=== PATIENT | female | born 1955 | race African-American/Black ===

== ENCOUNTER 2016-02-25 08:36 | Emergency (ER) | payer MEDICARE, OTHER ==
[~2016-02-25] VITALS: Ht 172.7 cm; Wt 100.0 kg
[2016-02-25 08:42] VITALS: TEMP 36.7; Ht 172.7 cm; Wt 100.0 kg
--- NOTE | 2016-02-25 09:26 | EMERGENCY ROOM VISIT NOTE ---
ED Visit Note First contact with patient: 08:44 I have seen and examined this patient with Gina Overton and generally agree with the treatment plan as discussed. Vital Signs Date Time Temp Pulse Resp B/P Pulse Ox O2 Delivery O2 Flow Rate FiO2 02/25/16 08:42 36.7 69 18 142/88 95 Room Air Departure Information Referrals No Doctor, Assigned (PCP) Patient Instructions [facility]
[2016-02-25] MEDS ORDERED: LISI-725 PO (09:30)
[2016-02-25] MEDS ORDERED: ESCI10TA17 PO (09:31)
[2016-02-25] MEDS ORDERED: ASPI81TA28 PO (09:31)
--- NOTE | 2016-02-25 10:10 | DIAGNOSTIC IMAGING REPORT ---
LEFT ANKLE MIN 3 VIEWS ROUTINE CLINICAL HISTORY: Left ankle pain status post trauma COMPARISON: None. DISCUSSION: No acute fractures are visualized. There is a flatfoot deformity. There are advanced degenerative changes within the midfoot. The findings could be on a neuropathic basis. There is mild soft tissue swelling. IMPRESSION: 1. No acute fractures 2. Flat foot deformity 3. Advanced degenerative changes within the hindfoot and midfoot. While nonspecific, the findings could be on a neuropathic basis. Electronically signed by: Abraham Alvarado M.D. 02/25/2016 10:08 AM Dictated Date/Time: 02/25/2016 10:05 AM
--- NOTE | 2016-02-25 10:11 | DIAGNOSTIC IMAGING REPORT ---
LEFT FOOT MIN 3 VIEWS ROUTINE CLINICAL HISTORY: Left foot pain following twisting injury 3 days ago. COMPARISON: None FINDINGS: The tarsometatarsal joints are intact. There is pes planus deformity. Severe joint space narrowing with osteophytosis is noted within the left midfoot. No acute fracture is identified. There is moderate arthritis within multiple articulations of the left forefoot. IMPRESSION: 1. No acute fracture or dislocation of the left foot. 2. Severe left midfoot arthritis with pes planus deformity. Electronically signed by: Dev Muro M.D. 02/25/2016 10:09 AM Dictated Date/Time: 02/25/2016 10:06 AM
--- NOTE | 2016-02-25 11:10 | EMERGENCY ROOM VISIT NOTE ---
ED Visit Note First contact with patient: 08:44 CHIEF COMPLAINT: Left foot and ankle injury 3 days ago HISTORY OF PRESENT ILLNESS: Patient is a 60-year-old -Citizen Of [place] female who presents emergency department for evaluation of left foot and ankle pain after she slipped on ice and fell a couple of days ago. She notes pain in the lateral aspect of the left ankle radiating into the foot. She tried elevating, taking Tylenol, wrapping it and soaking in Epsom salts. She states the pain has not gotten any better. She notes that she scraped her knee slightly but denies any pain there. No other injuries are noted. REVIEW OF SYSTEMS: Review of systems as per HPI. All other systems reviewed were negative. At least 6 systems reviewed. PMH: Electronic medical records are reviewed and summarized as above/below. See Problem List. SOCIAL HISTORY: Patient lives at home with her family. Employed. Nonsmoker. PHYSICAL EXAM: Vital Signs: Reviewed Nurse's notes. MENTAL STATUS: Alert, oriented, and cooperative. Patient has planovalgus alignment. The left ankle is slightly swollen and tender over the lateral aspect but the skin is intact and there is no ligamentous instability. There is also swelling noted into the dorsum of the foot with pain over the 5th metatarsal. No pain over the proximal fibular head. Lisfranc joint is negative. There is no deformity. The foot and toes are warm and well-perfused. Sensation to pain and light touch is intact. EMERGENCY DEPARTMENT COURSE: X-ray of the left foot and ankle do not show any acute fracture. Chronic degenerative changes are noted. A compression sleeve and gel splint were applied to the ankle under my direction and the position was satisfactory. Supportive care measures were discussed. The patient was encouraged to rest and elevate the ankle. Wear the gel splint for support. She can gradually return to full activity as her symptoms allow. If her pain is not improving she should follow-up with orthopedics for further care and management as she may benefit from physical therapy. Differential diagnosis include foot verses ankle sprain/fracture, contusion, dislocation. LEFT ANKLE MIN 3 VIEWS ROUTINE CLINICAL HISTORY: Left ankle pain status post trauma COMPARISON: None. DISCUSSION: No acute fractures are visualized. There is a flatfoot deformity. There are advanced degenerative changes within the midfoot. The findings could be on a neuropathic basis. There is mild soft tissue swelling. IMPRESSION: 1. No acute fractures 2. Flat foot deformity 3. Advanced degenerative changes within the hindfoot and midfoot. While nonspecific, the findings could be on a neuropathic basis. LEFT FOOT MIN 3 VIEWS ROUTINE CLINICAL HISTORY: Left foot pain following twisting injury 3 days ago. COMPARISON: None FINDINGS: The tarsometatarsal joints are intact. There is pes planus deformity. Severe joint space narrowing with osteophytosis is noted within the left midfoot. No acute fracture is identified. There is moderate arthritis within multiple articulations of the left forefoot. IMPRESSION: 1. No acute fracture or dislocation of the left foot. 2. Severe left midfoot arthritis with pes planus deformity. Problem List Medical Problems: (1) Depression Status: Chronic (2) Hypertension Status: Chronic Current/Historical Medications Scheduled Aspirin (Aspirin Ec), 81 MG PO DAILY Escitalopram (Lexapro), 10 MG PO DAILY Lisinopril (Zestril), 20 MG PO DAILY Allergies Coded Allergies: No Known Allergies (Unverified , 02/25/16) Vital Signs Date Time Temp Pulse Resp B/P Pulse Ox O2 Delivery O2 Flow Rate FiO2 02/25/16 11:34 64 16 121/98 100 02/25/16 08:42 36.7 69 18 142/88 95 Room Air Departure Information Impression Primary Impression: Left ankle sprain Additional Impression: Sprain of left foot Referrals No Doctor, Assigned (PCP) Patient Instructions [facility] Additional Instructions Ibuprofen(Motrin, Advil) may be used for fever or pain. Use 600mg every six hours as needed. Take with food. Avoid using more than 2400mg in a 24 hour period. Do not use 2400mg per day for more than three consecutive days without physician direction. Prolonged inappropriate use can lead to stomach upset or ulcers. This medication can be taken if you need to drive, work, or perform activities which may be dangerous when taking narcotic pain medication. (AND/OR) Acetaminophen(Tylenol) may be used for fever or pain. Use 1000mg every six hours as needed. Avoid using more than 3000mg in a 24 hour period. This medication can be taken if you need to drive, work, or perform activities which may be dangerous when taking narcotic pain medication. Ice compresses for 20 minutes at a time four times daily for 2-3 days. Use the DARLENE wrap and gel splint as instructed. Rest and elevate your injury. Continue current medications. Return to the ER immediately for any numbness, tingling, severe pain, extreme swelling in the extremity or as needed. Followup with your family doctor or orthopedic surgery if no improvement in 5-7 days.
[2016-02-25 11:34] VITALS: BP 121/98; PULSE 64; O2SAT 100
== END 2016-02-25 11:35 | disposition home or self-care (01) ==
LOC: C.EDB 08:41 → C.EDA 11:35
DX: S93.402A Sprain of unspecified ligament of left ankle, initial encounter (principal); S93.602A Unspecified sprain of left foot, initial encounter; W00.0XXA Fall on same level due to ice and snow, initial encounter; I10 Essential (primary) hypertension; F32.9 Major depressive disorder, single episode, unspecified; Z79.899 Other long term (current) drug therapy

== ENCOUNTER 2022-07-24 15:36 | Observation (INO) ==
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
[2022-07-24] MEDS ORDERED: ACETAMINOPHEN 500 MG TAB PO STA (16:43)
[2022-07-24] MEDS ORDERED: SODIUM CHLORIDE 0.9% 1000ML 1,000 ML IV SCH (16:45)
--- NOTE | 2022-07-24 17:37 | CT Scan Report ---
CT SCAN OF THE BRAIN WITHOUT IV CONTRAST CLINICAL HISTORY: Head injury. COMPARISON STUDY: No priors. TECHNIQUE: Unenhanced axial CT scan of the brain is performed from the vertex to the skull base. A do se lowering technique was utilized adhering to the principles of ALARA. FINDINGS: Brain parenchyma: A right frontal approach ventriculostomy catheter is in place. The tip terminates i n the body of the left lateral ventricle. Right frontal encephalomalacia is seen along the course of the catheter. There is age advanced involutional change noting moderate subcortical and periventricul ar microangiopathic disease. There is no hemorrhage, mass effect, or evidence of acute territorial is chemia by CT criteria. There is a chronic lacunar infarct in the right thalamus. Murdock-white matter di fferentiation is preserved. No extra-axial fluid collection is seen. Ventricles, sulci, cisterns: Prominent secondary to involutional change. Intracranial vasculature: There is atherosclerotic calcification of the cavernous carotid arteries. Calvarium: The skeletal structures are osteopenic. No depressed calvarial fracture is seen. There is a right frontal erum hole. Sinuses and mastoids: There is mild mucosal thickening within the left maxillary antrum. The remainin g visualized paranasal sinuses are clear. The mastoid air cells are well pneumatized. Orbits: The bony orbits are grossly intact. IMPRESSION: 1. There is no hemorrhage, mass effect, or evidence of acute territorial ischemia by CT criteria. 2. A right frontal approach ventriculostomy catheter is in place. No hydrocephalus is seen. ACT 112: Negative or not required by law. Electronically signed by: Willy Dimas M.D. 07/24/2022 5:35 PM
[2022-07-24 17:40] LABS: Basophils # (auto) 0.04 K/uL (0-0.2); Basophils % (auto) 0.3 %; Eosinophils # (auto) 0.08 K/uL (0-0.50); Eosinophils % (auto) 0.6 %; Hematocrit (blood only) 37.4 % (37.0-47.0); Hemoglobin 12.6 g/dl (12.0-16.0); Immature Granulocytes # (auto) 0.04 K/uL (0.01-0.20); Immature Granulocytes % (auto) 0.3 %; Lymphocytes # (auto) 2.57 K/uL (1.2-3.4); Lymphocytes % (auto) 20.6 %; Mean Corpuscular Hemoglobin 30.1 pg (25.0-34.0); Mean Corpuscular Hgb Conc 33.7 g/dL (32.0-36.0); Mean Corpuscular Volume 89.5 fL (80.0-100.0); Mean Platelet Volume 8.9 fL (9.4-12.4); Monocytes # (auto) 0.97 K/uL (0.11-0.59); Monocytes % (auto) 7.8 %; Neutrophils # (auto) 8.75 K/uL (1.40-6.50); Neutrophils % (auto) 70.4 %; Platelet Count 344 K/uL (130-400); RDW Coefficient of Variation 12.1 % (11.5-14.5); RDW Standard Deviation 39.2 fL (36.4-46.3); Red Blood Count 4.18 M/uL (4.20-5.40); White Blood Count 12.45 K/ul (4.8-10.8)
--- NOTE | 2022-07-24 17:42 | CT Scan Report ---
CT SCAN OF THE CERVICAL SPINE CLINICAL HISTORY: Fall. COMPARISON STUDY: No priors. TECHNIQUE: CT scan of the cervical spine is performed from the skull base to the upper thoracic spine . Images are reviewed in the axial, sagittal, and coronal planes. IV contrast was not administered fo r this examination. A dose lowering technique was utilized adhering to the principles of ALARA. FINDINGS: Skeletal structures: The skeletal structures are osteopenic. There is no evidence of fracture or subl uxation involving the cervical spine. Vertebral body height and alignment are maintained. There is st raightening of the cervical lordosis. Anterior osteophytes are seen throughout. The odontoid process and lateral masses are intact. The atlantoaxial articulation is preserved noting productive degenerat jono changes. The spinous processes appear intact. There is moderate multilevel cervical spondylosis. Uncovertebral and facet arthropathy contribute to neural foraminal narrowing at several levels. Intervertebral discs: Mild disc space narrowing is seen throughout the cervical spine, greatest at C5 -C6. Central canal: Posterior disc osteophyte complexes at C4-C5 and C5-C6 likely contribute to acquired c ompromise of the central canal. Soft tissues: The prevertebral and paraspinous soft tissues are within normal limits. A ventricular s soares catheter traverses the soft tissues of the right neck. There is atherosclerotic calcification of the carotid bulbs. Calvarium: The visualized calvarium at the skull base appears intact. Brain parenchyma: Partially visualized brain parenchyma at the skull base is within normal limits. Sinuses and mastoids: Mucosal thickening is noted in the left maxillary antrum. The mastoid air cells are well pneumatized. Lung apices: Clear as visualized. IMPRESSION: 1. There is no evidence of fracture or subluxation involving the cervical spine. 2. Osteopenia and spondylotic change as above. ACT 112: Negative or not required by law. Electronically signed by: Willy Dimas M.D. 07/24/2022 5:39 PM
[2022-07-24 17:53] LABS: Albumin Globulin Ratio 1.1 (0.9-2); BUN Creatinine Ratio 18.3 (10-20); Bilirubin,Total 0.5 mg/dl (0.2-1.0); Calcium 9.6 mg/dl (8.6-10.3); Creatinine Clr Calc Pharmacy 58.1 ml/min; Est GFR (African American) 54.9 ml/min; Est GFR (Non-African American) 47.4 ml/min; Globulin 3.7 gm/dl (2.5-4.0); Total Protein 7.7 gm/dl (6.0-8.3)
--- NOTE | 2022-07-24 18:46 | XRay Report ---
RIGHT KNEE 3 VIEWS; LEFT KNEE 3 VIEWS CLINICAL HISTORY: Fall. Bilateral knee pain. FINDINGS: AP and crosstable lateral views of of the right and left knee with a sunrise view both knees are obta ined. Comparison is made to radiographs of the right and left knee dated 05/23/2018. The skeletal stru ctures are well mineralized. No fracture is seen in either knee. There is chronic posttraumatic defor mity of the left proximal fibula. Right knee: There is advanced tricompartmental degenerative joint space narrowing of the right knee. There are large marginal osteophytes, patellar enthesophytes, and degenerative beaking of the tibial spine. Bony overgrowth is seen along the distal femur and proximal tibia. No significant joint effusi on is identified. There is mild prepatellar soft tissue swelling. Atherosclerotic calcification is ob served in the popliteal artery. Left knee: There is advanced tricompartmental degenerative joint space narrowing, greatest in the lat eral compartment. There are large marginal osteophytes, patellar this is a 5, and degenerative beakin g of the tibial spine. Bony overgrowth is seen along the distal femur and the proximal tibia. There i s a small joint effusion. Mild prepatellar soft tissue swelling is noted. IMPRESSION: 1. Prepatellar soft tissue swelling with no radiographic evidence of acute fracture involving the rig ht or left knee. 2. Osteopenia and advanced degenerative change as above. 3. A small joint effusion is noted on the left. Electronically signed by: Willy Dimas M.D. 07/24/2022 6:44 PM
--- NOTE | 2022-07-24 19:20 | CT Scan Report ---
CT SCAN OF THE FACIAL BONES WITHOUT IV CONTRAST CLINICAL HISTORY: Recent fall. Facial injury. COMPARISON STUDY: No priors. TECHNIQUE: High-resolution CT scan of the facial bones is performed. Images are reviewed in the axia l, sagittal, and coronal planes. IV contrast was not administered for this examination. A dose lower ing technique was utilized adhering to the principles of ALARA. FINDINGS: The skeletal structures are osteopenic. There is no evidence of facial bone fracture. The b bernarda orbits are intact and the orbital contents are within normal limits. The zygomatic arches, nasal bones, and pterygoid plates are preserved. The maxilla and mandible are intact. There are no layering blood products within the paranasal sinuses. There is yhtb-so-vupheghk mucosal thickening within the left maxillary antrum. Trace because of thickening is seen within the ethmoid sinuses. The remaining paranasal sinuses are clear. The mastoid air cells are well pneumatized. The visualized calvarium an d upper cervical spine are maintained. Partially imaged brain parenchyma is within normal limits noti ng involutional change. There are numerous dental caries. Periapical lucencies are seen in the left m axilla. There is left premalar soft tissue contusion. IMPRESSION: 1. There is no evidence of facial bone fracture. 2. Left premalar soft tissue contusion. 3. There are numerous dental caries, as well as periapical lucencies within the maxilla. Nonemergent follow-up with dentistry is recommended. ACT 112: Negative or not required by law. Electronically signed by: Willy Dimas M.D. 07/24/2022 7:18 PM
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
[2022-07-24 19:30] LABS: Troponin I High Sensitivity 9.6 pg/ml (0-14)
--- NOTE | 2022-07-24 20:50 | XRay Report ---
THORACIC SPINE 3 VIEWS CLINICAL HISTORY: Fall. Thoracic back pain. FINDINGS: AP, lateral, and swimmer's views of the thoracic spine are obtained. No prior studies are a vailable for comparison at the time of dictation. The skeletal structures are osteopenic. There is no radiographic evidence of acute fracture or malalignment. Vertebral body height and alignment are roberto ntained throughout the thoracic spine. Large anterior and lateral marginal osteophytes are seen throu ghout. There is hyperkyphosis. There is mild multilevel degenerative disc space narrowing. The transv erse processes and pedicles are grossly intact as seen on the frontal view. Cervical spondylosis is p artially visualized on the swimmer's view. The imaged lung parenchyma appears clear. A ventricular sh unt catheter traverses the right chest wall. IMPRESSION: There is no radiographic evidence of acute fracture or malalignment involving the thoraci c spine. Electronically signed by: Willy Dimas M.D. 07/24/2022 8:49 PM
[2022-07-24] MEDS ORDERED: ACETAMINOPHEN 325 MG TAB PO PRN (21:49)
[2022-07-24] MEDS ORDERED: ONDANSETRON INJ 2 MG/ML 2 ML VIAL IV PRN (21:49)
[2022-07-24] MEDS ORDERED: VIBEGRON 75 MG TAB PO SCH (21:49)
[2022-07-24 22:15] LABS: Magnesium 1.9 mg/dl (1.7-2.4)
[2022-07-24 22:21] LABS: Phosphorus 3.3 mg/dl (2.5-4.9)
[2022-07-24] MEDS ORDERED: PNEUMOCOCCAL POLYSACCHARIDES 25 MCG/0.5 ML VIAL/SYR IM ONE (23:37)
[2022-07-25 07:25] LABS: Hematocrit (blood only) 31.8 % (37.0-47.0); Hemoglobin 10.6 g/dl (12.0-16.0); Mean Corpuscular Hemoglobin 29.9 pg (25.0-34.0); Mean Corpuscular Hgb Conc 33.3 g/dL (32.0-36.0); Mean Corpuscular Volume 89.6 fL (80.0-100.0); Mean Platelet Volume 9.1 fL (9.4-12.4); Platelet Count 323 K/uL (130-400); RDW Coefficient of Variation 12.1 % (11.5-14.5); RDW Standard Deviation 39.5 fL (36.4-46.3); Red Blood Count 3.55 M/uL (4.20-5.40); White Blood Count 10.42 K/ul (4.8-10.8)
[2022-07-25 07:44] LABS: BUN Creatinine Ratio 20.2 (10-20); Creatinine Clr Calc Pharmacy 65.9 ml/min; Est GFR (African American) 65.3 ml/min; Est GFR (Non-African American) 56.3 ml/min; Potassium 3.8 mmol/L (3.5-5.1)
[2022-07-25 07:51] LABS: Troponin I High Sensitivity 8.3 pg/ml (0-14)
[2022-07-25] MEDS ORDERED: buPROPion XL 150 MG TABCR PO SCH (09:00)
[2022-07-25] MEDS ORDERED: LISINOPRIL/HCTZ 20/25MG 1 TAB PO SCH (09:00)
[2022-07-25] MEDS ORDERED: ESCITALOPRAM OXALATE 20 MG TAB PO SCH (09:00)
[2022-07-25] MEDS ORDERED: ASPIRIN 81 MG ECTAB PO SCH (09:00)
[2022-07-25] MEDS ORDERED: amLODIPine BESYLATE 5 MG TAB PO SCH (09:00)
--- NOTE | 2022-07-25 11:49 | XCELERA ---
[id number] \\[id number]
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
--- NOTE | 2022-07-25 12:52 | Discharge Summary ---
Date of Service July 25, 2022 Admission HPI Per Admitting Provider Radha is a 67 year old female with a PMH significant for HTN, depression, urinary incontinence, and previous hydrocephalous S/P DISPATCHER SHIP PILOT shunt placement approximately 20 years ago who presented to the [facility] ED on 07/24/22 after sustaining a fall yesterday due to dizziness. In the ED vitals were stable. Labs were significant for a leukocytosis of 12 with left shift of 8.75, sodium of 135. CT of the cervical spine was read as "1. There is no evidence of fracture or subluxation involving the cervical spine. 2. Osteopenia and spondylotic change as above.". CT of the head was read as "1. There is no hemorrhage, mass effect, or evidence of acute territorial ischemia by CT criteria. 2. A right frontal approach ventriculostomy catheter is in place. No hydrocephalus is seen.1. There is no hemorrhage, mass effect, or evidence of acute territorial ischemia by CT criteria. 2. A right frontal approach ventriculostomy catheter is in place. No hydrocephalus is seen. Xrays of the BL knees were read as "1. Prepatellar soft tissue swelling with no radiographic evidence of acute fracture involving the right or left knee. 2. Osteopenia and advanced degenerative change as above. 3. A small joint effusion is noted on the left.". ECG shows NSR with ST segment depressions in the inferolateral leads. There is no previous ECG's to compare to. Due to her recent symptoms of dizziness and concerning ECG findings we were asked to admit for observation and further cardiac monitoring. At the time of the exam the patient was lying in bed in no acute distress with her daughter sitting bedside. The patient states she was in her normal state of health yesterday. She states that she was sitting in a recliner and stood up, when she lost her balance and fell. She denies feeling dizzy, lightheaded, and chest pain, chest pressure, heart palpitations, or SOB either prior to, during, or after her fall. She did hit the left side of her fact during her fall but denies loss of consciousness. She denies an neurologic symptoms since her fall. She denies previous hx of heart attack or the need for previous PCI or stent placement. She does state that she was told she had a heart murmur in the past. She denies recent fever, chills, changes in vision, hearing, taste, smell, nausea, vomiting, diarrhea, dysuria, hematuria, melena, and LE swelling. Her only complaints at the time of the exam are some soreness on the left lateral face and the BL knees. She is a Full Code and would want her daughter to make medical decisions for her if she cannot make them herself. Please refer to Dr. Navas's attestation for any changes to treatment plan Principal Diagnosis Mechanical fall, abnormal EKG due to LVH Discharge Exam General-alert and oriented x3, no fevers, no chills HEENT-head atraumatic and normocephalic, pupils equal and reactive to light, extraocular muscles intact Neck-no lymphadenopathy or thyromegaly, trachea midline Chest-clear to auscultation percussion. No rales wheezing or rhonchi Cardiac-regular rate and rhythm, normal S1 and S2 Abdomen-normal bowel sounds, nontender, no hepatosplenomegaly Extremities-no cyanosis, clubbing, or edema Neuro-cranial nerves II through XII intact, motor and sensory function within normal limits, strength symmetrical , no focal deficits Psych-normal affect, normal mood Discharge Data Allergies Allergy/AdvReac Type Severity Reaction Status Date / Time No Known Allergies Allergy Verified 07/24/22 18:15 Consultations 07/24/22 18:56 ED Decision to Admit Stat 07/25/22 07:37 Consult Cardiology Routine Ordered Studies 07/24/22 16:43 CT cervical spine wo con Stat CT facial bones wo con Stat CT head/brain wo con Stat Hospital Course (1) Abnormal ECG: This appears to be due to LVH. No regional wall motion abnormality seen on echo. Troponin is normal. She denies chest pain. She was seen by cardiology. They recommend outpatient stress testing if necessary (2) Fall: Patient clearly states she lost her balance after standing up from her recliner. Denies lightheadedness, dizziness, vertigo, changes in vision, hearing, taste, smell, cardiac, and pulmonary symptoms before or after . No acute trauma on CT head and neck, chest xray, and xrays of the BL knees. (3) Hypertension: Stable . Continue amlodipine, lisinopril-HCTZ (4) Depression: Stable. Continue Lexapro and Bupropion (5) Urinary incontinence: Stable. Continue Mirabegron Plan Home today, July 25 Total Time Total Time Spent Total Time Spent (In Minutes): 40 minutes Discharge Plan Discharge Items Patient Disposition: Home - Self-Care Reason For Visit: DIZZINESS, FALL Discharge Diagnosis: Mechanical fall, abnormal EKG due to left ventricular hypertrophy Activity: Resume your previous activity Non-emergency contact: Primary Care Provider Call non-emergency contact if: your symptoms worsen Follow-up/Referrals: Sergio Montano CRNP [Primary Care Provider] - Diet: Regular and Heart Healthy Addtl Attending Provider Instructions: All medications remain the same Pending Studies at Discharge: No Stand-Alone Forms: PubNub, Smoking Cessation Medications and DC Order Prescriptions: Continued aspirin 81 mg tablet,delayed release (DR/EC) 81 mg PO QAM escitalopram oxalate 20 mg tablet 20 mg PO QAM Qty: 90 0RF bupropion HCl [Wellbutrin XL] 150 mg tablet extended release 24 hr 150 mg PO QAM Qty: 90 0RF Myrbetriq 50 mg tablet extended release 24 hr 50 mg PO HS Qty: 90 0RF amlodipine 5 mg tablet 5 mg PO QAM Qty: 90 0RF lisinopril-hydrochlorothiazide 20-25 mg tablet 1 tab PO QAM Qty: 90 0RF diclofenac sodium [Voltaren] 1 % Gel 2 g TOPICAL DIRECTED PRN (Reason: Pain) Discharge Orders: Discharge Order (Routine); Ordered 07/25/22 Ordered By: Naren Vasquez Admission Data Admit Date/Time: 07/24/22 19:23 Attending Provider: Naren Vasquez Admit Provider: Kiki Kc Primary Care Provider: Sergio Montano Other Providers: Kiki Kc ; Osorio Posadas ; Aditya Waters ; Mele Arauz ; See Mayers ; Hemal Herrera ; Rj Padgett Jr ; Bhaskar Sutton ; Sirisha Chan ; Jacqui Jensen ; Jm Islas ; Shon Thacker ; Naren Schmidt ; Rachell Stone ; Yeny Madden ; De Rowe ; Ronaldo Howard ; See Wall V. Coding Level of Care Code 43880 INP/OBS DISCH >30 MIN Diagnoses Abnormal ECG R94.31 Fall W19.XXXA Hypertension I10 Depression F32.9 Urinary incontinence R32
--- NOTE | 2022-07-25 13:45 | Electrocardiogram Report ---
Test Reason : Blood Pressure : / mmHG Vent. Rate : 087 BPM Atrial Rate : 087 BPM P-R Int : 150 ms QRS Dur : 102 ms QT Int : 396 ms P-R-T Axes : 056 003 231 degrees QTc Int : 476 ms Normal sinus rhythm Voltage criteria for left ventricular hypertrophy Prolonged QT Abnormal ECG No previous ECGs available Confirmed by Mele Arauz ([id number]) on 07/25/2022 1:45:05 PM Referred By: REFERRED SELF Confirmed By:Mele Arauz
--- NOTE | 2022-07-25 13:50 | Electrocardiogram Report ---
Test Reason : Blood Pressure : / mmHG Vent. Rate : 084 BPM Atrial Rate : 084 BPM P-R Int : 178 ms QRS Dur : 114 ms QT Int : 404 ms P-R-T Axes : 049 -14 208 degrees QTc Int : 477 ms Normal sinus rhythm Left ventricular hypertrophy with repolarization abnormality Prolonged QT Abnormal ECG When compared with ECG of 24-JUL-2022 15:53, (unconfirmed) No significant change was found Confirmed by Mele Arauz ([id number]) on 07/25/2022 1:49:51 PM Referred By: REFERRED SELF Confirmed By:Mele Arauz
--- NOTE | 2022-07-25 13:55 | Electrocardiogram Report ---
Test Reason : Blood Pressure : / mmHG Vent. Rate : 087 BPM Atrial Rate : 087 BPM P-R Int : 166 ms QRS Dur : 112 ms QT Int : 400 ms P-R-T Axes : 059 -24 128 degrees QTc Int : 481 ms Normal sinus rhythm Left ventricular hypertrophy with repolarization abnormality Abnormal ECG When compared with ECG of 24-JUL-2022 19:53, (unconfirmed) No significant change Confirmed by Mele Arauz ([id number]) on 07/25/2022 1:54:40 PM Referred By: REFERRED SELF Confirmed By:Mele Arauz
--- NOTE | 2022-07-26 12:34 | Electrocardiogram Report ---
Test Reason : Blood Pressure : / mmHG Vent. Rate : 093 BPM Atrial Rate : 093 BPM P-R Int : 168 ms QRS Dur : 108 ms QT Int : 378 ms P-R-T Axes : 049 -26 220 degrees QTc Int : 469 ms Normal sinus rhythm Incomplete right bundle branch block Left ventricular hypertrophy with repolarization abnormality Cannot rule out Septal infarct (cited on or before 25-JUL-2022) Abnormal ECG When compared with ECG of 24-JUL-2022 21:54, No significant change Confirmed by Mele Arauz ([id number]) on 07/26/2022 12:34:39 PM Referred By: REFERRED SELF Confirmed By:Mele Arauz
== END 2022-07-25 14:17 | disposition home or self-care (01) ==
LOC: ED 15:36 → 2N 15:36 → SUATTDRO 19:23 → 2N 21:16